=== PATIENT | male | born 1965 | race Hispanic/Latino ===

== ENCOUNTER 2018-04-10 10:04 | Outpatient (CLI) | payer MEDICARE | END 2018-04-10 10:05 | disposition home or self-care (01) | LOC: C.DIABED 10:04 ==

== ENCOUNTER 2018-05-08 09:45 | Outpatient (CLI) | payer MEDICARE | END 2018-05-08 09:46 | disposition home or self-care (01) | LOC: C.DIABED 09:45 ==